=== PATIENT | female | born 1955 | race Caucasian/White ===

== ENCOUNTER → 2019-11-12 | Outpatient (CLI) | payer BC ==
--- NOTE | 2019-11-12 17:17 | KCIC ---
Bone mineral density exam History: Takes calcium supplement, hysterectomy Comparison: 06/18/2008 Findings: Bone mineral density examination utilizing DEXA was performed. Left hip bone mineral density of 0.997 g/cm2 corresponds with a T score 0.5, Z score 1.6. There has been -5.4% increase. The bone mineral density of the lumbar spine was 1.111 g/cm2 which corresponds with a T-score of 0.6, Z score 2.2. There has been -1.7% decrease. By [employer] on Osteoporosis criteria, a T score of 0 to-1 SD is considered to be within normal limits. A T score of -1 to -2.5 SD is considered osteopenia. A T score less than -2.5 SD is considered osteoporosis Impression: 1. There is normal bone density of the left hip and the lumbar spine. Electronically signed by: Viet Alonso MD (11/12/2019 5:14 PM) [id number]
== END | disposition home or self-care (01) ==
LOC: KCIC DEXA 10:55
PROVIDERS: ATTEND Student in an Organized Health Care Education/Training Program
DX: E21.0 Primary hyperparathyroidism (principal); Z78.0 Asymptomatic menopausal state
CPT/HCPCS: 77080